=== PATIENT | female | born 1965 | race Caucasian/White ===

== ENCOUNTER 2016-10-06 15:03 | Emergency (ER) | payer BC ==
[~2016-10-06] VITALS: Ht 175.3 cm; Wt 87.0 kg
[~2016-10-06 15:03] MED LIST: ALBU1AER9; ATV5 PO; CHOL1000 PO; GABA-112 PO; LEVO150T9 PO; LISI-729 PO; OMEP40CA PO; PRAV20TA PO; RIZA10TA19 PO
[2016-10-06 15:13] VITALS: Ht 175.3 cm; Wt 87.0 kg
[2016-10-06] MEDS ORDERED: SODIUM CHLORIDE 0.9% 1000ML 1,000 ML IV STA (16:50)
[2016-10-06] MEDS ORDERED: SODIUM CHLORIDE 0.9% 1000ML 1,000 ML IV ONE (16:50)
--- NOTE | 2016-10-06 16:55 | EMERGENCY ROOM VISIT NOTE ---
History Report prepared by Byron: Jaya Dhaliwal Under the Supervision of: Dr. Chris Ragland M.D. First contact with patient: 16:38 Chief Complaint: HEADACHE Stated Complaint: SHARP PAIN IN R JAINISM,HEADACHE History of Present Illness The patient is a 51 year old female who presents to the Emergency Room with complaints of a worsening intermittent sharp headache located around her right jewish starting 1000 today. The patient states that the pain lasts around 3 seconds per episode. She currently rates her discomfort as a 2/10 in severity. The patient states that she has been headaches for the past week, and she had a migraine yesterday. The patient states that she took Maxalt, and she states that she has not felt any better. The patient states that this pain is very different than her usual migraines today. The patient additionally states that she has been having some pain behind her eyes. The patient additionally states that she has been lethargic. The patient denies any fevers, chills, weakness, new numbness, abdominal pain, jaw pain, or teeth pain. She states that currently her right eye has been having some blurry vision. The patient denies any history of diabetes or stroke. Source of History: patient, spouse/significant other Onset: 1000 Position: head Symptom Intensity: 2/10 Quality: sharp Timing: intermittent, worsening Associated Symptoms: No abdominal pain, No chills, No fevers, No numbness, No weakness Note: Associated symptoms: Blurry vision Review of Systems See HPI for pertinent positives & negatives. A total of 10 systems reviewed and were otherwise negative. Past Medical & Surgical Medical Problems: (1) Anxiety State Nos (2) Asthma (3) Asthma, Unspecified (4) Chronic Sinusitis Nos (5) Esophageal Reflux (6) Hyperlipidemia Nec/Nos (7) Hypertension Nos (8) Hypothyroidism (9) Impaired Fasting Glucose (10) Lyme Disease (11) Myalgia And Myositis Nos (12) Sprain Of Ankle Nos (13) Vitamin D Deficiency Nos Old medical records were reviewed. Nurse's notes were reviewed and I agree with. Family History Diabetes mellitus FH: cancer Hypertension Social History Smoking Status: Never Smoker Alcohol Use: none Drug Use: none Marital Status: Housing Status: lives with significant other Occupation Status: employed Current/Historical Medications Scheduled Cyclobenzaprine Hcl (Flexeril), 5-7.5 MG PO HS Gabapentin (Neurontin), 100 MG PO TID Levothyroxine Sodium (Levothyroxine Sodium), 1 TAB PO DAILY Lorazepam (Ativan), 1-2 TABS PO DAILY Losartan Potassium (Losartan Potassium), 25 MG PO DAILY Pravastatin Sodium (Pravachol), 10 MG PO DAILY Rizatriptan Benzoate (Maxalt-Mosaic Floor Layer), 10 MG PO AT ONSET OF FREITAS Sertraline HCl (Sertraline HCl), 50 MG PO DAILY Scheduled PRN [Proair], 2 PUFF INH Q4 PRN for SOB/Wheezing Allergies Coded Allergies: Sulfa Drugs (Verified Allergy, Severe, HIVES AND COULDN'T BREATH VERY WELL , 03/29/15) Wheat (Verified Allergy, Intermediate, HEART PALPATION/SOB, 03/29/15) Physical Exam Vital Signs Date Time Temp Pulse Resp B/P Pulse Ox O2 Delivery O2 Flow Rate FiO2 10/06/16 18:55 37.0 78 20 120/81 100 10/06/16 18:33 78 20 120/81 100 Room Air 10/06/16 17:08 112 20 108/77 97 Room Air 10/06/16 15:13 37.0 81 18 165/96 99 Room Air Physical Exam General: Non-ill appearing middle aged female in no acute distress. HEENT: Minimal tenderness to the right jewish.Normal cephalic atraumatic. Pupils are equal round and reactive to light. Extraocular movements are intact. Oropharynx is pink with moist mucous membranes. No swelling of the mouth lips or tongue. Neck: Supple with a midline trachea. No meningeal signs or stiffness, no JVD or bruits. No Stridor. Chest: Clear to auscultation bilaterally. No wheezes or rhonchi. No increased work of breathing. Heart: regular rate and rhythm. Abdomen: Soft nontender, nondistended without rebound guarding or rigidity. Extremities: No cyanosis clubbing or edema. No calf tenderness or assymetry Spine/Back. Non tender to palpation. No CVA tenderness Skin: Good turgor without rashes. Neurologic exam: Awake, alert, and oriented x 3. Normal speech. No tremor. Finger to nose intact. Cranial nerves two through 12 are intact. Motor and sensation are intact and symmetrical throughout. Medical Decision & Procedures ER Provider Diagnostic Interpretation: CT results as stated below per my review and radiologist interpretation: HEAD CT NONCONTRAST CT DOSE: 537.48 mGy.cm HISTORY: Headache right jewish headache TECHNIQUE: Multiaxial CT images of the head were performed without the use of intravenous contrast. Comparison: 08/19/2006 Findings: The paranasal sinuses and mastoid air cells are clear. The calvarium and skull base are intact. The ventricles and sulci are within normal limits. There is no mass, hematoma, midline shift, or acute infarct. 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 No acute process is seen. Impression: No acute intracranial abnormality. Chronic change. Electronically signed by: Juan Jimenez M.D. 10/06/2016 6:07 PM Dictated Date/Time: 10/06/2016 6:05 PM Laboratory Results 10/06/16 17:00 Red Blood Count 4.65, Mean Corpuscular Volume 86.7, Mean Corpuscular Hemoglobin 31.2, Mean Corpuscular Hemoglobin Concent 36.0, Mean Platelet Volume 9.7, Neutrophils (%) (Auto) 53.0, Lymphocytes (%) (Auto) 38.3, Monocytes (%) (Auto) 5.4, Eosinophils (%) (Auto) 2.3, Basophils (%) (Auto) 1.0, Neutrophils # (Auto) 2.76, Lymphocytes # (Auto) 1.99, Monocytes # (Auto) 0.28, Eosinophils # (Auto) 0.12, Basophils # (Auto) 0.05 10/06/16 17:00 Test 10/06/16 17:00 White Blood Count 5.20 K/uL (4.8-10.8) Red Blood Count 4.65 M/uL (4.2-5.4) Hemoglobin 14.5 g/dL (12.0-16.0) Hematocrit 40.3 % (37-47) Mean Corpuscular Volume 86.7 fL (80-100) Mean Corpuscular Hemoglobin 31.2 pg (25-34) Mean Corpuscular Hemoglobin Concent 36.0 g/dl (32-36) Platelet Count 184 K/uL (130-400) Mean Platelet Volume 9.7 fL (7.4-10.4) Neutrophils (%) (Auto) 53.0 % Lymphocytes (%) (Auto) 38.3 % Monocytes (%) (Auto) 5.4 % Eosinophils (%) (Auto) 2.3 % Basophils (%) (Auto) 1.0 % Neutrophils # (Auto) 2.76 K/uL (1.4-6.5) Lymphocytes # (Auto) 1.99 K/uL (1.2-3.4) Monocytes # (Auto) 0.28 K/uL (0.11-0.59) Eosinophils # (Auto) 0.12 K/uL (0-0.5) Basophils # (Auto) 0.05 K/uL (0-0.2) RDW Standard Deviation 39.4 fL (36.4-46.3) RDW Coefficient of Variation 12.4 % (11.5-14.5) Immature Granulocyte % (Auto) 0.0 % Immature Granulocyte # (Auto) 0.00 K/uL (0.00-0.02) Erythrocyte Sedimentation Rate 7 mm/hr (0-21) Anion Gap 9.0 mmol/L (3-11) Est Creatinine Clear Calc Drug Dose 69.6 ml/min Estimated GFR () 66.4 Estimated GFR (Non- 57.3 BUN/Creatinine Ratio 15.8 (10-20) Calcium Level 8.8 mg/dl (8.5-10.1) Labs reviewed by me Medications Administered Medications (Trade) Dose Ordered Sig/Dariana Route Start Time Stop Time Status Last Admin Dose Admin Sodium Chloride 1,000 ml @ 999 mls/hr Q1H1M STAT IV 10/06/16 16:50 10/06/16 17:50 DC 10/06/16 17:20 999 MLS/HR Sodium Chloride (Nss 1000ml) 1,000 ml @ 150 mls/hr Q6H40M ONCE IV 10/06/16 16:50 10/06/16 19:10 DC 10/06/16 18:20 150 MLS/HR ED Course 1640: Past medical records reviewed. The patient was evaluated in room A2, and a complete history and physical examination were performed. 1650: Sodium Chloride 1000 ml @ 150 mls/hr IV, Sodium Chloride 1000 ml @ 999 mls /hr IV 1840: Upon reevaluation, the patient is resting comfortably, and her eye pressures were 11 bilaterally. I discussed the results and treatment plan with her. She verbalized agreement of the treatment plan. The patient was discharged home. Medical Decision Differentials include, but are not limited to; Migraine, tension headache, temporal arteritis, intracranial process, aneurysm. This patient comes in as described above. She was placed in room A3. She is having a headache in her right jewish. It is worse with palpation and movement. On exam, she is not red or visiting nurse this area. She has normal neurologic exam. I checked her ocular pressures and they are normal at 11. She has no evidence of glaucoma. CAT scan of her head was unremarkable. Her sedimentation rate was normal and therefore highly unlikely temporal arteritis. She has no acute electrolyte or metabolic abnormalities. She was hydrated with IV normal saline is feeling well. She will be discharged to home. This may be related to tension or muscle spasm. I told her follow-up with her regular doctor this week for recheck and return ER if: fever chills, numbness or weakness, worsening symptoms, any new problems or concerns. Impression Primary Impression: Right temporal headache Scribe Attestation The scribe's documentation has been prepared under my direction and personally reviewed by me in its entirety. I confirm that the note above accurately reflects all work, treatment, procedures, and medical decision making performed by me. Departure Information Dispostion Home / Self-Care Referrals John Anders M.D. (PCP) Forms HOME CARE DOCUMENTATION FORM, IMPORTANT VISIT INFORMATION Patient Instructions My [facility] Additional Instructions Rest. Return if: Worsening of symptoms, fever or chills, numbness or weakness, increasing pain or problems, any problems or concerns. Follow-up with your doctor in 1-2 days recheck.
[2016-10-06] MEDS ORDERED: LORA-741 PO (17:10)
[2016-10-06] MEDS ORDERED: PROAIR INH (17:10)
[2016-10-06] MEDS ORDERED: CZR25 PO (17:10)
[2016-10-06] MEDS ORDERED: ZLF/50 PO (17:10)
[2016-10-06 17:19] LABS: BASO ABS # 0.05 K/uL (0-0.2); COMPLETE YES; EOS % 2.3 %; HEMATOCRIT 40.3 % (37-47); LYMPH % 38.3 %; LYMPH ABS # 1.99 K/uL (1.2-3.4); MEAN CELL VOLUME 86.7 fL (80-100); MEAN CORPUSCULAR HEMOGLOBIN 31.2 pg (25-34); MEAN PLATELET VOLUME 9.7 fL (7.4-10.4); MONO % 5.4 %; PLATELET COUNT 184 K/uL (130-400); RED BLOOD COUNT 4.65 M/uL (4.2-5.4)
[2016-10-06 17:34] LABS: BUN/CREATININE RATIO 15.8 (10-20); CALCIUM 8.8 mg/dl (8.5-10.1); CREATININE 1.1 mg/dl (0.60-1.20)
--- NOTE | 2016-10-06 18:08 | DIAGNOSTIC IMAGING REPORT ---
HEAD CT NONCONTRAST CT DOSE: 537.48 mGy.cm HISTORY: Headache right mormonism headache TECHNIQUE: Multiaxial CT images of the head were performed without the use of intravenous contrast. Comparison: 08/19/2006 Findings: The paranasal sinuses and mastoid air cells are clear. The calvarium and skull base are intact. The ventricles and sulci are within normal limits. There is no mass, hematoma, midline shift, or acute infarct. 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 No acute process is seen. Impression: No acute intracranial abnormality. Chronic change. Electronically signed by: Juan Jimenez M.D. 10/06/2016 6:07 PM Dictated Date/Time: 10/06/2016 6:05 PM
[2016-10-06 18:55] VITALS: BP 120/81; PULSE 78; TEMP 37; O2SAT 100
[2016-10-06] MEDS ORDERED: CYCL5TAB28 PO (20:43)
== END 2016-10-06 18:55 | disposition home or self-care (01) ==
LOC: C.EDB 15:05 → C.EDA 18:55
DX: R51 Headache (principal); J45.909 Unspecified asthma, uncomplicated; F41.9 Anxiety disorder, unspecified; J32.9 Chronic sinusitis, unspecified; K21.9 Gastro-esophageal reflux disease without esophagitis; E78.5 Hyperlipidemia, unspecified; I10 Essential (primary) hypertension; E03.9 Hypothyroidism, unspecified; Z86.19 Personal history of other infectious and parasitic diseases; E55.9 Vitamin D deficiency, unspecified; Z83.3 Family history of diabetes mellitus; Z80.9 Family history of malignant neoplasm, unspecified; Z82.49 Family history of ischemic heart disease and other diseases of the circulatory system; Z79.899 Other long term (current) drug therapy

== ENCOUNTER → 2017-02-28 | Outpatient (CLI) | payer BC ==
[~2017-02-28] MED LIST changes: -ALBU1AER9; -ATV5 PO; -CHOL1000 PO; +CYCL5TAB28 PO; +CZR25 PO; -LISI-729 PO; +LORA-741 PO; -OMEP40CA PO; +PROAIR INH; +ZLF/50 PO
--- NOTE | 2017-03-03 14:32 | MAMMOGRAPHY REPORT ---
BILATERAL DIGITAL SCREENING MAMMOGRAM TOMOSYNTHESIS WITH CAD: 02/28/2017 CLINICAL HISTORY: Routine screening. Patient has no complaints. TECHNIQUE: Breast tomosynthesis in addition to standard 2D mammography was performed. Current study was also evaluated with a Computer Aided Detection (CAD) system. COMPARISON: Comparison is made to exams dated: 12/15/2015 mammogram, 11/15/2014 mammogram, 08/06/2012 m ammogram, 06/27/2011 mammogram - [facility], 09/16/2008, and 04/24/2007. BREAST COMPOSITION: There are scattered areas of fibroglandular density in both breasts. FINDINGS: No suspicious masses, calcifications, or areas of architectural distortion are noted in ei ther breast. There has been no significant interval change compared to prior exams. IMPRESSION: ACR BI-RADS CATEGORY 1: NEGATIVE There is no mammographic evidence of malignancy. A 1 year screening mammogram is recommended. The pa tient will receive written notification of the results. Approximately 10% of breast cancers are not detected with mammography. A negative mammographic report should not delay biopsy if a clinically suggestive mass is present. Alesha Mercer M.D. /:02/28/2017 15:47:54 Pediatric Social Worker: Nancy WELSH(Floridalma)(Satish)([place]), [facility] letter sent: Normal 1/2 BI-RADS Code: ACR BI-RADS Category 1: Negative
== END | disposition home or self-care (01) ==
LOC: C.MAMM 15:10
PROVIDERS: ATTEND Obstetrics & Gynecology
DX: Z12.31 Encounter for screening mammogram for malignant neoplasm of breast (principal)

== ENCOUNTER → 2017-08-11 | Outpatient (CLI) | payer OTHER | END | disposition home or self-care (01) | LOC: C.PAPS 16:14 | PROVIDERS: ATTEND Obstetrics & Gynecology | DX: Z12.4 Encounter for screening for malignant neoplasm of cervix (principal) ==